=== PATIENT | male | born 1960 | race Caucasian/White ===

== ENCOUNTER → 2019-04-27 | Outpatient (CLI) | payer BC ==
[~2019-04-27] MED LIST: AMOX500 PO; HYDACE5 PO; IBUP200; VITAMINS
[2019-04-27 15:53] LABS: BASOPHILS ABSOLUTE AUTO 0.04 K/mm3 (0.00-0.23); BASOPHILS PERCENT AUTO 0 % (0-2); EOSINOPHILS ABSOLUTE AUTO 0.07 K/mm3 (0.00-0.68); EOSINOPHILS PERCENT AUTO 1 % (0-6); Hematocrit 39.8 % (37.0-53.0); IMMATURE GRAN ABSOLUTE AUTO 0.07 K/mm3 (0.00-0.10); IMMATURE GRAN PERCENT AUTO 1 % (0-1); LYMPHOCYTES ABSOLUTE AUTO 1.53 K/mm3 (0.84-5.20); LYMPHOCYTES PERCENT AUTO 15 % (21-46); MONOCYTES ABSOLUTE AUTO 0.69 K/mm3 (0.16-1.47); MONOCYTES PERCENT AUTO 7 % (4-13); Mean Corpuscular HGB 28.6 pg (26.0-34.0); Mean Corpuscular HGB Conc 35.2 g/dL (31.5-36.5); Mean Corpuscular Volume 81 fL (80-100); Mean Platelet Volume 9.3 fL (9.1-12.4); NEUTROPHILS ABSOLUTE AUTO 7.61 K/mm3 (1.96-9.15); NEUTROPHILS PERCENT AUTO 76 % (41-73); Platelet Count 344 K/mm3 (150-400); RDW Coefficient Variation 12.9 % (11.7-14.2); RDW Standard Deviation 37.6 fL (35.1-46.3); White Blood Cell Count 10.01 K/mm3 (4.00-11.30)
[2019-04-27 16:03] LABS: Albumin, Blood 3.9 g/dL (3.4-5.0); Albumin/Globulin Ratio 1.1 (0.8-1.8); Bilirubin, Total 1.1 mg/dL (0.1-1.0); Bun/Creatinine Ratio 16.9 (12.0-20.0); Calcium, Blood 8.8 mg/dL (8.5-10.1); Creatinine, Blood 1.24 mg/dL (0.60-1.20); Globulin, Blood 3.4 g/dL (2.2-4.0); Potassium, Blood 4.1 mmol/L (3.5-5.5); Total Protein, Blood 7.3 g/dL (6.4-8.2)
== END | disposition home or self-care (01) ==
LOC: LAB SHORT 15:48 → LAB EV 15:48
PROVIDERS: Physician Assistant
DX: M25.531 Pain in right wrist (principal)
CPT/HCPCS: 80053; 84550; 85025

== ENCOUNTER 2020-06-11 10:04 | Day surgery (SDC) | payer OTHER, BC ==
[~2020-06-11 10:04] MED LIST changes: +CEPH500 PO; +Roxicodone5 MG PO; +TRAZ50 PO
--- NOTE | 2020-06-11 12:11 | NUR ---
History, Chart, Medications and Allergies reviewed before start of procedure.Lungs clear T/O to Auscultation. Patient confirms NPO status and agrees with scheduled surgery. BELONGINGS UNDER BED. PT VOICED FEARS OVER WONDED AND BROKEN PARTS OF BODY. PLACED IV TO RIGHT HAND, THE ONLY SPOT AVAILABLE DUE TO ROAD RASH AND BROKEN BONES ON EXTREMITIES.
--- NOTE | 2020-06-11 16:27 | NUR ---
Discharge instructions reviewed with patient. Patient verbalizes understanding. Copy given to patient to take home. Patient States Post-Procedure ride home has been arranged. Discharged via wheelchair to private car for ride home.
== END 2020-06-11 22:55 | disposition home or self-care (01) ==
LOC: ORSCMMR 10:04
PROVIDERS: Orthopaedic Surgery
PROC: 0HBDXZZ Excision of Right Lower Arm Skin, External Approach (ICD-10-PCS; principal; 2020-06-11 13:45)
PROC: 0PSN0ZZ Reposition Left Carpal, Open Approach (ICD-10-PCS; principal; 2020-06-11 13:45)
PROC: 0HBMXZZ Excision of Right Foot Skin, External Approach (ICD-10-PCS; principal; 2020-06-11 13:45)
PROC: 0HBBXZZ Excision of Right Upper Arm Skin, External Approach (ICD-10-PCS; principal; 2020-06-11 13:45)
PROC: 0HBKXZZ Excision of Right Lower Leg Skin, External Approach (ICD-10-PCS; principal; 2020-06-11 13:45)
DX: S62.303A Unspecified fracture of third metacarpal bone, left hand, initial encounter for closed fracture (principal); S62.305A Unspecified fracture of fourth metacarpal bone, left hand, initial encounter for closed fracture; S40.811A Abrasion of right upper arm, initial encounter; S80.211A Abrasion, right knee, initial encounter; S90.412A Abrasion, left great toe, initial encounter; V20.4XXA Motorcycle driver injured in collision with pedestrian or animal in traffic accident, initial encounter
CPT/HCPCS: 73110; J0690; J1100; J1885; J2250; J2405; J2704; J3010; J7120

== ENCOUNTER 2020-06-22 00:24 | Day surgery (SDC) | payer OTHER, BC | END 2020-06-22 22:48 | disposition home or self-care (01) | LOC: WOUND 00:24 | DX: S40.811D Abrasion of right upper arm, subsequent encounter (principal); S50.811D Abrasion of right forearm, subsequent encounter; S80.211D Abrasion, right knee, subsequent encounter; S90.412D Abrasion, left great toe, subsequent encounter; X58.XXXD Exposure to other specified factors, subsequent encounter | CPT/HCPCS: G0463 ==